=== PATIENT | male | born 1940 | race Caucasian/White ===

== ENCOUNTER 2018-07-17 12:41 | Outpatient (CLI) | payer MEDICARE ==
[~2018-07-17] VITALS: Ht 182.9 cm; Wt 102.5 kg
[~2018-07-17 12:41] MED LIST: ALLO100T PO; ASPI-1264 PO; CLOP75TA35 PO; COR3.125T PO; DOCU-281 PO; DRON400T6 PO; LEVO75TA57 PO; RANI-366 PO; ROSU5TAB4 PO; [UNRECOGNIZED DRUG - CODE] PO
[2018-07-17] MEDS ORDERED: albuterol 2.5 MG/3 ML nebule NEB ONE (13:05)
[2018-07-17 13:25] LABS: TOTAL HEMOGLOBIN 14.6 G/dl (14.0-18.0)
== END 2018-07-17 23:59 | disposition home or self-care (01) ==
LOC: RT 12:41
PROVIDERS: ATTEND Internal Medicine Pulmonary Disease
DX: J45.909 Unspecified asthma, uncomplicated (principal); R06.09 Other forms of dyspnea; F17.210 Nicotine dependence, cigarettes, uncomplicated; Z79.899 Other long term (current) drug therapy; Z79.82 Long term (current) use of aspirin
CPT/HCPCS: 85018; 94060; 94640; 94727; 94729

== ENCOUNTER 2019-04-22 18:37 | Emergency (ER) | payer MEDICARE, OTHER ==
[~2019-04-22] VITALS: Ht 182.9 cm; Wt 86.9 kg
[2019-04-22] MEDS ORDERED: HYDROcodone/acetaminophen 10/325mg tab PO ONE (18:55)
[2019-04-22 19:43] VITALS: BP 116/64
[2019-04-22] MEDS ORDERED: fentaNYL/PF 50MCG/1 ML 2ML syringe IV ONE (20:15)
[2019-04-22] MEDS ORDERED: normal saline 1000ML IV soln IVB ONE (20:15)
[2019-04-22] MEDS ORDERED: ondansetron/PF 4mg/2ml inj IV ONE (20:15)
[2019-04-22 20:49] LABS: ALBUMIN 3.6 G/DL (3.4-5.0); ANION GAP 9 (8-16); BLOOD UREA NITROGEN 26 MG/DL (7-18); CALCIUM 8.8 MG/DL (8.5-10.1); CHLORIDE 108 MMOL/L (99-107); CREATININE 1.37 MG/DL (0.60-1.10); GLUCOSE 94 MG/DL (70-104); POTASSIUM 4.2 MMOL/L (3.5-5.1); SODIUM 143 MMOL/L (135-145); TOTAL CARBON DIOXIDE 25.6 MMOL/L (24-32); eGFR 50 ML/MIN
[2019-04-22] MEDS ORDERED: iohexol 300mg/ml 100ml inj. ONE (21:07)
[2019-04-22] MEDS ORDERED: diazepam 5mg tablet PO ONE (23:05)
[2019-04-22] MEDS ORDERED: morphine 4 MG/ML inj SYRINge IV ONE (23:05)
[2019-04-23] MEDS ORDERED: METH-360 PO (00:09)
[2019-04-23] MEDS ORDERED: ONDA4TAB6 PO (00:09)
[2019-04-23] MEDS ORDERED: HYDR-4353 PO (00:09)
== END 2019-04-23 00:34 | disposition home or self-care (01) ==
LOC: ER 18:37
DX: M54.5 Low back pain (principal); M25.552 Pain in left hip; I48.91 Unspecified atrial fibrillation; K21.9 Gastro-esophageal reflux disease without esophagitis; E07.9 Disorder of thyroid, unspecified; G89.29 Other chronic pain; Z98.890 Other specified postprocedural states; Z88.1 Allergy status to other antibiotic agents; Z88.8 Allergy status to other drugs, medicaments and biological substances; Z79.82 Long term (current) use of aspirin; Z79.899 Other long term (current) drug therapy
CPT/HCPCS: 36415; 72131; 72193; 80048; 96374; 96375; 99284; J2270; J2405; J3010; J7040; Q9967

== ENCOUNTER 2020-10-06 08:56 | Outpatient (CLI) | payer MEDICARE, OTHER ==
[~2020-10-06] VITALS: Ht 182.9 cm; Wt 93.4 kg
[~2020-10-06 08:56] MED LIST changes: +CLOP75TA34 PO; -CLOP75TA35 PO; +METH-360 PO; +ONDA4TAB6 PO
[2020-10-06 09:17] LABS: TOTAL HEMOGLOBIN 14.7 G/dl (14.0-18.0)
[2020-10-06] MEDS ORDERED: albuterol 2.5 MG/3 ML nebule NEB ONE (09:45)
== END 2020-10-06 23:59 | disposition home or self-care (01) ==
LOC: RT 08:56
PROVIDERS: ATTEND Internal Medicine Cardiovascular Disease
DX: J44.9 Chronic obstructive pulmonary disease, unspecified (principal); R91.1 Solitary pulmonary nodule; K44.9 Diaphragmatic hernia without obstruction or gangrene; I70.0 Atherosclerosis of aorta; M85.88 Other specified disorders of bone density and structure, other site; M47.819 Spondylosis without myelopathy or radiculopathy, site unspecified; M25.78 Osteophyte, vertebrae; M19.011 Primary osteoarthritis, right shoulder; M19.012 Primary osteoarthritis, left shoulder; Z79.899 Other long term (current) drug therapy
CPT/HCPCS: 71046; 85018; 94060; 94727; 94729; 94760

== ENCOUNTER 2022-11-08 15:50 | Outpatient (CLI) | payer MEDICARE, OTHER ==
[2022-11-08] MEDS ORDERED: albuterol 2.5 MG/3 ML nebule NEB ONE (16:50)
== END 2022-11-08 23:59 | disposition home or self-care (01) ==
LOC: RT 15:50
PROVIDERS: ATTEND Specialist
DX: I48.91 Unspecified atrial fibrillation (principal); R06.02 Shortness of breath; Z79.899 Other long term (current) drug therapy
CPT/HCPCS: 94060; 94727; 94729; 94760

== ENCOUNTER 2024-10-02 08:28 | Outpatient (CLI) | payer MEDICARE, OTHER ==
[~2024-10-02] VITALS: Ht 177.8 cm; Wt 89.4 kg
[2024-10-02 08:50] LABS: TOTAL HEMOGLOBIN 11.8 G/dl (13.5-17.5)
[2024-10-02] MEDS: albuterol 2.5 MG/3 ML nebule NEB ONE (09:22)
[2024-10-02 09:25] VITALS: PULSE 62; RESP 14; O2SAT 97
[2024-10-02 09:37] VITALS: PULSE 60; RESP 15
== END 2024-10-02 23:59 | disposition home or self-care (01) ==
LOC: RT 08:28
PROVIDERS: ATTEND Specialist
DX: J44.9 Chronic obstructive pulmonary disease, unspecified (principal)
CPT/HCPCS: 85018; 94060; 94727; 94729; 94760